=== PATIENT | female | born 1960 | race Asian ===

== ENCOUNTER 2019-11-20 18:46 | Emergency (ER) | payer OTHER ==
[~2019-11-20] VITALS: Ht 157.5 cm; Wt 56.7 kg
--- NOTE | 2019-11-20 19:10 | NUR ---
ED Nurse Note: Pt ambulated to ED from home, pt presents with a fluid filled sac on the inside of the R side of the mouth x1week. Pt denies pain or fever. it appears to be silver dollar size. Pt A&Ox4, VSS
[2019-11-20 19:13] VITALS: BP 148/77
[2019-11-20 19:37] VITALS: BP 148/77
--- NOTE | 2019-11-20 19:38 | NUR ---
ER DISCHARGE NOTE: Patient is cleared to be discharged per ERMD, pt is aox4, on room air, with stable vital signs. pt was given dc and prescription instructions, pt was able to verbalize understanding, pt id band removed pt is able to ambulate with steady gait. pt took all belongings.
--- NOTE | 2019-11-20 20:24 | Emergency Room Report ---
History of Present Illness General Chief Complaint: Skin Rash/Abscess Source: Patient Present Illness HPI Patient presents with a lesion that she has felt in the right lower inner part of her mouth for the past 7 days Denies any pain denies any bleeding denies any recent trauma or dental work Denies any appearance of this in the past Denies any trismus denies any difficulty swallowing Allergies: Coded Allergies: No Known Allergies (Unverified , 11/20/19) COVID-19 Screening Contact w/high risk pt: No Recent Travel to affected area: No Experienced COVID-19 symptoms?: No Patient History Past Medical History: see triage record Reviewed Nursing Documentation: PMH: Agreed; PSxH: Agreed Nursing Documentation-PMH Hx Diabetes: Yes Review of Systems All Other Systems: negative except mentioned in HPI Physical Exam Vital Signs Date Time Temp Pulse Resp B/P (MAP) Pulse Ox O2 Delivery O2 Flow Rate FiO2 11/20/19 18:58 98.8 75 19 148/77 (100) 95 Room Air Sp02 EP Interpretation: reviewed, normal General Appearance: well appearing, no apparent distress Head: normocephalic, atraumatic Eyes: bilateral eye PERRL, bilateral eye EOMI ENT: other - Approximately half by half centimeter appearance of a hemangioma in the lower aspect of the bucosal region of the lower cheek, does not appear pulsatile Neck: supple, no meningismus Respiratory: lungs clear, no respiratory distress Cardiovascular #1: regular rate, rhythm Gastrointestinal: non tender, soft Genitourinary: no CVA tenderness Musculoskeletal: normal inspection Neurologic: alert, oriented x3 Psychiatric: normal inspection Skin: other - As above Lymphatic: no adenopathy Medical Decision Making Diagnostic Impression: Primary Impression: oral hemangioma ER Course Patient has clinical evidence of a hemangioma other differential such as carcinomatous pathology , AV malfunctions malformations entertained/ Patient does not show any signs of airway obstruction The area is well-circumscribed and localized she is encouraged not to touch the area or Have any instrumentation and she will require close ENT specialty follow-up Last Vital Signs Date Time Temp Pulse Resp B/P (MAP) Pulse Ox O2 Delivery O2 Flow Rate FiO2 11/20/19 19:37 98.8 85 19 148/77 95 Room Air Status: unchanged Disposition: HOME, SELF-CARE Condition: Stable Referrals: [facility]ERR[facility] (PCP) Lopez,SongJOEY Murguia MD, Vivek-Sagar MD Patient Instructions: Hematoma, [id number] Additional Instructions: The instructions noted on this paper are not the correct diagnosis. Be correct diagnosis is hemangioma, and appropriate patient information was provided for you separately. This will require outpatient specialty follow-up Kamran Christian DO November 20, 2019 20:24
== END 2019-11-20 19:25 | disposition home or self-care (01) ==
LOC: EMR 19:11
DX: D18.09 Hemangioma of other sites (principal); E11.9 Type 2 diabetes mellitus without complications
CPT/HCPCS: 99282